=== PATIENT | female | born 1955 | race Asian ===

== ENCOUNTER 2020-09-23 16:14 | Emergency (ER) | payer BC ==
[~2020-09-23] VITALS: Ht 162.6 cm; Wt 92.1 kg
[2020-09-23 16:46] VITALS: BP_SYST 150
--- NOTE | 2020-09-23 16:51 | NUR ---
carito and placed in the waiting room
--- NOTE | 2020-09-23 17:55 | NUR ---
Patient to ER bed 3 to gown for evaluation. Side rails up.
--- NOTE | 2020-09-23 17:56 | NUR ---
Pt came into ER with complaint of left lower back pain 10/10 Xtoday with pain with urination. Pt AAOX4 speaking full sentences. No distress noted VSS. Attached to monitor.
--- NOTE | 2020-09-23 18:00 | NUR ---
MYRON Pond at bedside examining patient.
[2020-09-23 18:15] LABS: CLARITY/URINE CLEAR (CLEAR); COLOR,URINE YELLOW (YELLOW); PROTEIN URINE NEGATIVE (NEGATIVE)
[2020-09-23] MEDS ORDERED: KETOROLAC TROMETHAMINE 30 MG VIAL IVP ONE (18:15)
[2020-09-23] MEDS ORDERED: ONDANSETRON HCL 4 MG/2 ML VIAL IVP ONE (18:15)
[2020-09-23] MEDS ORDERED: NACL 0.9% 1,000 ML IV ONE (18:15)
[2020-09-23 18:16] LABS: BILIRUBIN,URINE NEGATIVE (NEGATIVE); BLOOD, URINE 2+ (NEGATIVE); GLUCOSE,URINE NEGATIVE (NEGATIVE); KETONES,URINE SMALL (NEGATIVE); LEUKOCYTE ESTERASE ,URINE NEGATIVE (NEGATIVE); NITRITE, URINE NEGATIVE (NEGATIVE); UROBILINOGEN,URINE 0.2 (0.2-1.0)
[2020-09-23 18:18] LABS: BACTERIA,URINE FEW /HPF (None Seen); CALCIUM OXALATE CRYSTALS,UR None Seen /HPF (None Seen); CALCIUM PHOSPHATE CRYSTALS,UR None Seen /HPF (None Seen); COARSE GRANULAR CASTS,URINE None Seen /LPF (None Seen); FINE GRANULAR CASTS,URINE None Seen /LPF (None Seen); HYALINE CASTS, URINE None Seen /LPF (None Seen); MUCUS,URINE None Seen /LPF (None Seen); OTHER CASTS, URINE None Seen /LPF (None Seen); OTHER CRYSTALS,URINE None Seen /HPF (None Seen); TRICHOMONAS,URINE None Seen /HPF (None Seen); TRIPLE PHOSPHATE CRYSTAL,UR None Seen /HPF (None Seen); URIC ACID CRYSTALS,URINE None Seen /HPF (None Seen); URINE AMORPHOUS PHOSPHATES None Seen /HPF (None Seen); URINE AMORPHOUS URATE None Seen /HPF (None Seen); WAXY CASTS,URINE None Seen /LPF (None Seen); WBC,URINE 0-3 /HPF (0-3); YEAST,URINE None Seen /HPF (None Seen)
--- NOTE | 2020-09-23 18:24 | NUR ---
Mary reich in [facility] - 09/23/20 at 1926 by A[place] Patient transported to radiology via wheelchair, accompanied by tech.
--- NOTE | 2020-09-23 18:24 | NUR ---
# 20 gauge angiocath placed to LAC. Use of asceptic technique. Opsite placed over site. Blood return noted. Blood for lab drawn from site. Flushed with 10 cc of normal saline. No evidence of infiltration noted. Patient tolerated well.
--- NOTE | 2020-09-23 18:25 | NUR ---
Blood and urine collected and sent to lab.
--- NOTE | 2020-09-23 18:30 | NUR ---
Mary reich in [facility] - 09/23/20 at 1926 by A[place]LA[place] Pt back from CT
[2020-09-23 18:41] LABS: BASOPHILS % (AUTO) 0.4 % (0.0-2.0); HEMOGLOBIN 12.8 g/dL (12.0-16.0); LYMPHOCYTES % (AUTO) 8.8 % (20.5-51.5); MEAN CORPUSCULAR HEMOGLOBIN 31 pg (27-31); MEAN CORPUSCULAR HGB CONC 34 % (32-36); MEAN CORPUSCULAR VOLUME 92 fL (79.0-98.0); MONOCYTES # (AUTO) 0.3 K/uL (0.0-1.0); MONOCYTES % (AUTO) 2.6 % (1.7-9.3); NEUTROPHILS # (AUTO) 9.7 K/uL (1.8-7.7); NEUTROPHILS % (AUTO) 88.2 % (40.0-70.0); PLATELET COUNT (AUTO) 254 K/uL (130-430); RED BLOOD CELL COUNT(AUTO) 4.15 MIL/uL (4.2-6.2); RED CELL DISTRIBUTION WIDTH 13.7 % (9.0-15.0); WHITE BLOOD COUNT (AUTO) 11.1 K/uL (4.8-10.8)
--- NOTE | 2020-09-23 18:45 | NUR ---
Patient transported to radiology via wheelchair, accompanied by tech.
--- NOTE | 2020-09-23 18:50 | NUR ---
pt back from CT
[2020-09-23 19:09] LABS: CALCIUM 9.2 mg/dL (8.4-11.0); CREATININE 0.99 mg/dL (0.55-1.30); POTASSIUM 4.7 mmol/L (3.5-5.1); TOTAL BILIRUBIN 0.9 mg/dL (0.0-1.0)
[2020-09-23 19:10] LABS: ALBUMIN 3.8 g/dL (3.4-4.8)
--- NOTE | 2020-09-23 19:11 | NUR ---
Received endorsement from day shift, AAOX4, breathing spontanoeuysly at room air, not in distress noted. With ongoing IV flud with 0.9% Normal Saline 1L at LEFT AC, g20 IV cannula, patent. Still have minimal to moderate lower back pain /10 as claimed, vital signs stable
--- NOTE | 2020-09-23 19:28 | NUR ---
Care endorsed to Victor Manuel JOSEPH
--- NOTE | 2020-09-23 20:21 | NUR ---
Ambulatory to toilet, voided freely
--- NOTE | 2020-09-23 21:25 | NUR ---
Re-assesed by Dr. Medina, for possible discharge
[2020-09-23] MEDS ORDERED: HYDR-3917 PO (22:19)
[2020-09-23] MEDS ORDERED: IBUP-1969 PO (22:21)
[2020-09-23] MEDS ORDERED: ONDA-8 TL (22:21)
[2020-09-23 22:30] VITALS: BP_SYST 138
--- NOTE | 2020-09-23 22:30 | NUR ---
Patient given written and verbal discharge instructions and verbalizes understanding. ER MD discussed with patient the results and treatment provided. Patient in stable condition. ID arm band removed. IV catheter removed intact and dressing applied, no active bleeding. Rx of [place], Ibupropen, Zofran given. Patient educated on pain management and to follow up with PMD. Pain Scale 0/10. Opportunity for questions provided and answered. Medication side effect fact sheet provided.
== END 2020-09-23 22:30 | disposition home or self-care (01) ==
LOC: SED 16:14
DX: N13.2 Hydronephrosis with renal and ureteral calculous obstruction (principal); I10 Essential (primary) hypertension; Z79.899 Other long term (current) drug therapy
CPT/HCPCS: 36415; 74176; 76376; 80053; 81000; 85025; 96361; 96374; 96375; 99285; J1885; J2405; J7030